=== PATIENT | male | born 1975 | race Caucasian/White ===

== ENCOUNTER 2023-08-02 10:45 | Outpatient (RCR) | payer OTHER, SELFPAY | END 2023-11-30 23:59 | disposition home or self-care (01) | PROVIDERS: Visit Provider Physician Assistant | DX: M75.42 Impingement syndrome of left shoulder (principal); M19.012 Primary osteoarthritis, left shoulder; M25.512 Pain in left shoulder; R29.898 Other symptoms and signs involving the musculoskeletal system; Z74.09 Other reduced mobility; Z51.89 Encounter for other specified aftercare | CPT/HCPCS: 97110; 97140; 97162 ==